=== PATIENT | male | born 1975 | race Caucasian/White ===

== ENCOUNTER 2020-04-21 15:52 | Inpatient (IN) ==
[2020-04-21] MEDS ORDERED: SODIUM CHLORIDE 0.9% 1,000 ML IV STA (16:59)
[2020-04-21] MEDS ORDERED: LEVOFLOXACIN INJ 500 MG in PREMIX 1 EACH IV STA (17:01)
[2020-04-21] MEDS ORDERED: LACTATED RINGERS 1,000 ML IV ONE (17:01)
[2020-04-21] MEDS ORDERED: LEVOFLOXACIN INJ 100 ML IV ONE (17:01)
[2020-04-21 17:10] LABS: Basophils % 0.2 % (0.0-0.8); Eosinophils % 0.2 % (0.00-10.9); Hematocrit 40.7 VOL% (42.0-52.0); Hemoglobin 13.9 GM/DL (14.0-18.0); Immature Granulocytes % 0.5 %; Immature Granulocytes Absolute 0.09 #; Lymphocytes # 3.5 10*3/uL (1.4-4.0); Lymphocytes % 19.6 % (21.2-54.2); Mean Corpuscular HGB Conc 34.2 GM/DL (32-36); Mean Corpuscular Volume 87.5 FL (87-102); Mean Platelet Volume 12.1 FL (9.6-12.0); Monocytes % 9.7 % (1.7-12.7); Neutrophils % 69.8 % (38.7-73.9); Platelet Count 344 T/CUMM (130-400); Red Blood Count 4.65 MC/CUMM (3.8-5.5); Red Cell Distribution Width 15.9 % (9.3-17.3); White Blood Count 17.9 T/CUMM (4-12)
[2020-04-21 17:22] LABS: INR 1.2; Partial Thromboplastin Time 35.9 SECS (23.9-33.8)
[2020-04-21] MEDS ORDERED: DEXAMETHASONE 4 MG/1 ML VIAL IV STA (17:34)
[2020-04-21] MEDS ORDERED: HEPARIN 5,000 UNIT/1 ML VIAL IV ONE (17:34)
[2020-04-21 18:04] LABS: Albumin 3.4 G/DL (3.4-5.0); Bilirubin,Total 0.4 MG/DL (0.2-1.0); Calcium 11.1 MG/DL (8.5-10.1); Osmolality,Calculated 354.5 MOS/KG (273-304); Total Protein 8.7 G/DL (6.4-8.3)
[2020-04-21] MEDS: HEPARIN DRIP 25,000 UNITS/500 ML PREMIX IV SCH (18:27)
[2020-04-21 18:40] LABS: ABG Base Excess -19.7 MMOL/L (-2.5-2.5); ABG HCO3 10.2 MMOL/L (20-26); ABG Oxygen Saturation 87.5 % (95-100); ABG PCO2 22.2 MM HG (35-48); ABG TCO2 7.4 MMOL/L (23-27)
[2020-04-21 18:42] LABS: ABG PH 7.167 (7.35-7.45)
[2020-04-21] MEDS ORDERED: SODIUM BICARB INJ 150 MEQ in DEXTROSE 5% 850 ML IV SCH (19:30)
[2020-04-21] MEDS ORDERED: ALBUTEROL 2.5 MG/3 ML NEB RESP TX PRN (21:22)
[2020-04-21] MEDS ORDERED: ONDANSETRON 4 MG/2 ML VIAL IV PRN (21:22)
[2020-04-21] MEDS ORDERED: PROMETHAZINE 25 MG/1 ML VIAL IM PRN (21:22)
[2020-04-21 22:32] LABS: Apearance,Urine CLOUDY (Clear); Bacteria,Urine Occasional /HPF (Few); Bilirubin,Urine Negative (Negative); Blood, Urine Large mg/dL (Negative); Glucose,Urine (UA) Negative (Negative); Ketones,Urine Negative (Negative); Nitrite,Urine Negative (Negative); Protein,Urine 100 MG/DL; RBC,Urine 1640 /HPF (0-4); Transitional Epi Cells,Urine Moderate /HPF (<1); Urine Color Yellow (Yellow); Urine Specific Gravity 1.019 (1.001-1.035); Urine Urobilinogen < 2.0 EU/DL (0.2-1.0); WBC,Urine 766 /HPF (0-6)
[2020-04-22] MEDS: SODIUM BICARB INJ 150 MEQ in DEXTROSE 5% 850 ML IV SCH ×6 (00:22→21:49)
[2020-04-22] MEDS: PANTOPRAZOLE 40 MG VIAL IV SCH ×2 (00:23→21:48)
[2020-04-22] MEDS ORDERED: SODIUM CHLORIDE 0.9% 1,000 ML IV ONE (00:26)
[2020-04-22 05:06] LABS: ABG Base Excess -13.8 MMOL/L (-2.5-2.5); ABG HCO3 13.9 MMOL/L (20-26); ABG Oxygen Saturation 99.1 % (95-100); ABG PH 7.343 (7.35-7.45); ABG TCO2 9.4 MMOL/L (23-27); Allen Test Positive
[2020-04-22 05:08] LABS: ABG PCO2 19.2 MM HG (35-48)
[2020-04-22 06:06] LABS: Hematocrit 32.9 VOL% (42.0-52.0); Hemoglobin 11.1 GM/DL (14.0-18.0); Immature Granulocytes % 0.4 %; Immature Granulocytes Absolute 0.02 #; Lymphocytes # 0.6 10*3/uL (1.4-4.0); Lymphocytes % 11.7 % (21.2-54.2); Mean Corpuscular HGB Conc 33.7 GM/DL (32-36); Mean Corpuscular Volume 86.6 FL (87-102); Mean Platelet Volume 12.2 FL (9.6-12.0); Monocytes % 0.8 % (1.7-12.7); Neutrophils % 87.1 % (38.7-73.9); Platelet Count 248 T/CUMM (130-400); Red Cell Distribution Width 15.2 % (9.3-17.3)
[2020-04-22 07:08] LABS: Albumin 2.7 G/DL (3.4-5.0); Bilirubin,Total 0.7 MG/DL (0.2-1.0); Calcium 9.8 MG/DL (8.5-10.1); Osmolality,Calculated 359.7 MOS/KG (273-304); Total Protein 7.3 G/DL (6.4-8.3)
[2020-04-22] MEDS: HEPARIN DRIP 25,000 UNITS/500 ML PREMIX IV SCH ×2 (12:37→21:48)
[2020-04-22] MEDS: PROMETHAZINE 25 MG TABLET PO PRN (15:10)
[2020-04-23] MEDS: SODIUM BICARB INJ 150 MEQ in DEXTROSE 5% 850 ML IV SCH ×3 (04:18→19:31)
[2020-04-23 05:25] LABS: Basophils % 0.1 % (0.0-0.8); Hemoglobin 10.3 GM/DL (14.0-18.0); Immature Granulocytes % 0.6 %; Immature Granulocytes Absolute 0.07 #; Lymphocytes # 1.5 10*3/uL (1.4-4.0); Lymphocytes % 13.4 % (21.2-54.2); Mean Corpuscular HGB Conc 34.3 GM/DL (32-36); Mean Corpuscular Volume 85.2 FL (87-102); Mean Platelet Volume 12.3 FL (9.6-12.0); Monocytes % 12.8 % (1.7-12.7); Neutrophils % 73.1 % (38.7-73.9); Platelet Count 240 T/CUMM (130-400); Red Blood Count 3.52 MC/CUMM (3.8-5.5); Red Cell Distribution Width 14.7 % (9.3-17.3); White Blood Count 11.2 T/CUMM (4-12)
[2020-04-23 05:41] LABS: Calcium 8.9 MG/DL (8.5-10.1); Osmolality,Calculated 358.7 MOS/KG (273-304)
[2020-04-23] MEDS: HEPARIN DRIP 25,000 UNITS/500 ML PREMIX IV SCH (08:12)
[2020-04-23] MEDS ORDERED: GLUCAGON 1 MG VIAL IM PRN (09:02)
[2020-04-23] MEDS ORDERED: DEXTROSE 10% 250 ML BAG IV PRN (09:02)
[2020-04-23] MEDS ORDERED: POTASSIUM CHLORIDE 20 MEQ TABLET PO ONE (09:12)
[2020-04-23] MEDS ORDERED: MAGNESIUM SULF RIDER 4 GM in PREMIX 1 EACH IV PRN (09:13)
[2020-04-23] MEDS: INSULIN REGULAR 100 UNIT/ML SUBCUT SCH ×2 (13:05→17:58)
[2020-04-23] MEDS: MAGNESIUM SULF RIDER 2 GM in PREMIX 1 EACH IV PRN (17:25)
[2020-04-23] MEDS: PANTOPRAZOLE 40 MG VIAL IV SCH (21:00)
[2020-04-23] MEDS: PROMETHAZINE 25 MG TABLET PO PRN (21:15)
[2020-04-24] MEDS: INSULIN REGULAR 100 UNIT/ML SUBCUT SCH ×5 (01:23→21:55)
[2020-04-24] MEDS: HEPARIN DRIP 25,000 UNITS/500 ML PREMIX IV SCH ×2 (01:31→20:21)
[2020-04-24] MEDS: POTASSIUM CHLORIDE INJ 30 MEQ in DEXTROSE 5% NACL 0.45% 1,000 ML IV SCH ×2 (03:18→12:06)
[2020-04-24 05:54] LABS: Basophils % 0.1 % (0.0-0.8); Hematocrit 29.9 VOL% (42.0-52.0); Hemoglobin 9.8 GM/DL (14.0-18.0); Immature Granulocytes % 0.4 %; Immature Granulocytes Absolute 0.03 #; Lymphocytes # 1.5 10*3/uL (1.4-4.0); Lymphocytes % 18.7 % (21.2-54.2); Mean Corpuscular HGB Conc 32.8 GM/DL (32-36); Mean Corpuscular Volume 90.3 FL (87-102); Mean Platelet Volume 11.9 FL (9.6-12.0); Monocytes % 13.1 % (1.7-12.7); Neutrophils % 67.7 % (38.7-73.9); Platelet Count 201 T/CUMM (130-400); Red Blood Count 3.31 MC/CUMM (3.8-5.5); Red Cell Distribution Width 14.8 % (9.3-17.3); White Blood Count 8.1 T/CUMM (4-12)
[2020-04-24 06:22] LABS: Calcium 8.9 MG/DL (8.5-10.1); Osmolality,Calculated 342.7 MOS/KG (273-304)
[2020-04-24] MEDS: MAGNESIUM SULF RIDER 2 GM in PREMIX 1 EACH IV PRN (06:53)
[2020-04-24] MEDS: PROMETHAZINE 25 MG TABLET PO PRN (08:35)
[2020-04-24] MEDS: DEXTROSE 5% KCL 20 MEQ 20 MEQ/1,000 ML BAG IV SCH ×2 (12:06→20:17)
[2020-04-24] MEDS: PANTOPRAZOLE 40 MG VIAL IV SCH (21:55)
[2020-04-25] MEDS: DEXTROSE 5% KCL 20 MEQ 20 MEQ/1,000 ML BAG IV SCH ×3 (05:42→21:43)
[2020-04-25 07:02] LABS: Calcium 8.7 MG/DL (8.5-10.1); Osmolality,Calculated 305.6 MOS/KG (273-304)
[2020-04-25] MEDS: INSULIN REGULAR 100 UNIT/ML SUBCUT SCH ×4 (08:20→20:08)
[2020-04-25] MEDS ORDERED: MAGNESIUM SULF RIDER 4 GM in PREMIX 1 EACH IV ONE (08:47)
[2020-04-25] MEDS ORDERED: ENOXAPARIN 40 MG/0.4 ML SYRINGE SUBCUT SCH (21:00)
[2020-04-25] MEDS: PANTOPRAZOLE 40 MG VIAL IV SCH (21:43)
[2020-04-26 05:28] LABS: Calcium 9.2 MG/DL (8.5-10.1); Osmolality,Calculated 288.1 MOS/KG (273-304)
[2020-04-26 07:25] VITALS: BP 131/77
[2020-04-26] MEDS: INSULIN REGULAR 100 UNIT/ML SUBCUT SCH (08:11)
[2020-04-26] MEDS: MAGNESIUM SULF RIDER 2 GM in PREMIX 1 EACH IV PRN (08:11)
== END 2020-04-26 11:36 | disposition home or self-care (01) | DRG 682 ==
LOC: N.ED 15:52 → N.EDINP 20:49 → SUATTDRO 20:49 → N.CC 21:20 → N.2E 04-25 11:53
PROVIDERS: ADMIT Internal Medicine; ATTEND Internal Medicine

== ENCOUNTER 2020-09-26 05:56 | Observation (INO) ==
[2020-09-21 11:06] LABS: Basophils % 0.2 % (0.0-0.8); Eosinophils # 0.2 10*3/uL (0.0-0.87); Eosinophils % 1.4 % (0.00-10.9); Hematocrit 38.8 VOL% (42.0-52.0); Hemoglobin 13.2 GM/DL (14.0-18.0); Immature Granulocytes % 0.4 %; Immature Granulocytes Absolute 0.04 #; Lymphocytes # 1.9 10*3/uL (1.4-4.0); Lymphocytes % 17.9 % (21.2-54.2); Mean Corpuscular Volume 89.2 FL (87-102); Mean Platelet Volume 10.7 FL (9.6-12.0); Monocytes % 5.9 % (1.7-12.7); Neutrophils % 74.2 % (38.7-73.9); Platelet Count 265 T/CUMM (130-400); Red Blood Count 4.35 MC/CUMM (3.8-5.5); Red Cell Distribution Width 13.9 % (9.3-17.3); White Blood Count 10.7 T/CUMM (4-12)
[2020-09-21 11:11] LABS: Bilirubin,Urine Negative (Negative); Blood, Urine Moderate mg/dL (Negative); Glucose,Urine (UA) Negative (Negative); Ketones,Urine Negative (Negative); Mucus,Urine Occasional /LPF (Occasional); Nitrite,Urine Negative (Negative); Protein,Urine Negative; RBC,Urine 20 /HPF (0-4); Urine Appearance Slightly Hazy (Clear); Urine Color Yellow (Yellow); Urine Specific Gravity 1.016 (1.001-1.035); Urine Urobilinogen < 2.0 EU/DL (0.2-1.0); WBC,Urine 219 /HPF (0-6)
[2020-09-21 11:24] LABS: Calcium 9.2 MG/DL (8.5-10.1); Osmolality,Calculated 283.3 MOS/KG (273-304)
[2020-09-26] MEDS ORDERED: ALVIMOPAN 12 MG CAPSULE ONE (07:17)
[2020-09-26] MEDS ORDERED: LEVOFLOXACIN INJ 100 ML IV ONE (07:17)
[2020-09-26] MEDS ORDERED: ALVIMOPAN 12 MG CAPSULE PO ONE (07:39)
[2020-09-26] MEDS: LACTATED RINGERS 1,000 ML IV SCH (07:41)
[2020-09-26] MEDS ORDERED: fentaNYL 100 MCG/2 ML VIAL ONE ×3 (11:06→14:11)
[2020-09-26] MEDS ORDERED: MIDAZOLAM 2 MG/2 ML VIAL ONE (11:06)
[2020-09-26] MEDS ORDERED: LIDOCAINE 2% 5 ML VIAL ONE (11:55)
[2020-09-26] MEDS ORDERED: ROCURONIUM 50 MG/5 ML VIAL IV ONE ×3 (11:55→13:34)
[2020-09-26] MEDS ORDERED: propofoL 200 MG/20 ML VIAL IV ONE (11:55)
[2020-09-26] MEDS ORDERED: LACTATED RINGERS 1,000 ML IV ONE (11:55)
[2020-09-26] MEDS ORDERED: PHENYLEPHRINE 1 MG/10 ML SYRINGE IV ONE (12:00)
[2020-09-26] MEDS ORDERED: ONDANSETRON 4 MG/2 ML VIAL ONE ×3 (12:05→16:10)
[2020-09-26] MEDS ORDERED: DEXAMETHASONE 4 MG/1 ML VIAL ONE ×2 (12:05)
[2020-09-26] MEDS ORDERED: SODIUM CHLORIDE 0.9% 100 ML IV ONE (12:28)
[2020-09-26] MEDS ORDERED: PHENYLEPHRINE 10 MG/1 ML VIAL IV ONE (12:29)
[2020-09-26] MEDS ORDERED: ePHEDrine 50 MG/ML VIAL ONE (12:38)
[2020-09-26] MEDS ORDERED: LACTATED RINGERS 2,000 ML IV ONE (13:34)
[2020-09-26] MEDS ORDERED: SEVOFLURANE 1 UNIT/15 MINUTE INH ONE ×2 (13:34→15:43)
[2020-09-26] MEDS ORDERED: ESMOLOL 100 MG/10 ML VIAL IV ONE (14:51)
[2020-09-26] MEDS ORDERED: SUGAMMADEX 200 MG/2 ML VIAL IV ONE (15:24)
[2020-09-26] MEDS ORDERED: HYDROmorphone 2 MG/1 ML VIAL ONE (16:09)
[2020-09-26] MEDS: HYDROmorphone 2 MG/1 ML VIAL IV PRN ×2 (16:11→16:29)
[2020-09-26] MEDS ORDERED: NALOXONE 0.4 MG/ML VIAL IV PRN (16:22)
[2020-09-26] MEDS ORDERED: HYDROmorphone PCA 30 MG/30 ML SYRINGE IV SCH (16:30)
[2020-09-26] MEDS ORDERED: ONDANSETRON 4 MG/2 ML VIAL IV PRN (16:34)
[2020-09-26] MEDS: ALVIMOPAN 12 MG CAPSULE PO SCH (21:58)
[2020-09-26] MEDS: ROSUVASTATIN 10 MG TABLET PO SCH (21:59)
[2020-09-26] MEDS: TAMSULOSIN 0.4 MG CAPSULE PO SCH (21:59)
[2020-09-26] MEDS: allopurinoL 300 MG TABLET PO SCH (21:59)
[2020-09-26] MEDS: amLODIPine 5 MG TABLET PO SCH (21:59)
[2020-09-26] MEDS: OLMESARTAN 20 MG TABLET PO SCH (21:59)
[2020-09-26] MEDS: SODIUM CHLORIDE 0.45% 1,000 ML IV SCH (22:02)
[2020-09-27] MEDS: ACETAMINOPHEN 500 MG TABLET PO PRN ×3 (05:30→20:31)
[2020-09-27 06:48] LABS: Calcium 8.6 MG/DL (8.5-10.1); Osmolality,Calculated 273.8 MOS/KG (273-304)
[2020-09-27 07:39] LABS: Basophils % 0.1 % (0.0-0.8); Hematocrit 33.9 VOL% (42.0-52.0); Hemoglobin 11.6 GM/DL (14.0-18.0); Immature Granulocytes % 0.4 %; Immature Granulocytes Absolute 0.06 #; Lymphocytes # 0.4 10*3/uL (1.4-4.0); Lymphocytes % 2.7 % (21.2-54.2); Mean Corpuscular HGB Conc 34.2 GM/DL (32-36); Neutrophils % 91.8 % (38.7-73.9); Platelet Count 196 T/CUMM (130-400); Red Blood Count 3.81 MC/CUMM (3.8-5.5); Red Cell Distribution Width 14.1 % (9.3-17.3); White Blood Count 13.8 T/CUMM (4-12)
[2020-09-27 08:05] LABS: Band Neutrophils 6 % (0-10); Lymphocytes 2 % (20-55); Platelet Estimate Normal; Segmented Neutrophils 86 % (50-85); Total Cells Counted 100
[2020-09-27 08:06] LABS: Anisocytosis 2+
[2020-09-27] MEDS: ALVIMOPAN 12 MG CAPSULE PO SCH ×2 (08:35→20:32)
[2020-09-27] MEDS: TAMSULOSIN 0.4 MG CAPSULE PO SCH ×2 (08:35→20:31)
[2020-09-27] MEDS: cefTRIAXone 1,000 MG VIAL IV SCH (08:43)
[2020-09-27] MEDS: LACTATED RINGERS 1,000 ML IV SCH (08:48)
[2020-09-27] MEDS: SODIUM CHLORIDE 0.45% 1,000 ML IV SCH ×2 (08:48→21:57)
[2020-09-27] MEDS ORDERED: MEPERIDINE 25 MG/1 ML VIAL IM PRN (11:09)
[2020-09-27] MEDS: HYDROmorphone 2 MG TABLET PO PRN ×2 (15:51→20:31)
[2020-09-27 16:04] LABS: Hematocrit 31.4 VOL% (42.0-52.0); Hemoglobin 10.7 GM/DL (14.0-18.0); Immature Granulocytes % 0.4 %; Immature Granulocytes Absolute 0.04 #; Lymphocytes # 0.4 10*3/uL (1.4-4.0); Lymphocytes % 4.3 % (21.2-54.2); Mean Corpuscular HGB Conc 34.1 GM/DL (32-36); Mean Corpuscular Volume 88.7 FL (87-102); Mean Platelet Volume 9.6 FL (9.6-12.0); Monocytes % 3.2 % (1.7-12.7); Neutrophils % 92.1 % (38.7-73.9); Platelet Count 170 T/CUMM (130-400); Red Blood Count 3.54 MC/CUMM (3.8-5.5); Red Cell Distribution Width 14.3 % (9.3-17.3); White Blood Count 9.7 T/CUMM (4-12)
[2020-09-27 16:30] LABS: Lymphocytes 4 % (20-55); Segmented Neutrophils 94 % (50-85); Total Cells Counted 100
[2020-09-27 16:31] LABS: Anisocytosis 1+; Hypochromasia 1+; Platelet Estimate Adequate
[2020-09-27] MEDS: allopurinoL 300 MG TABLET PO SCH (20:31)
[2020-09-27] MEDS: ROSUVASTATIN 10 MG TABLET PO SCH (20:32)
[2020-09-27] MEDS: OLMESARTAN 20 MG TABLET PO SCH (22:21)
[2020-09-27] MEDS: amLODIPine 5 MG TABLET PO SCH (22:21)
[2020-09-28] MEDS: HYDROmorphone 2 MG TABLET PO PRN ×3 (01:04→09:20)
[2020-09-28] MEDS: ACETAMINOPHEN 500 MG TABLET PO PRN ×3 (04:08→15:51)
[2020-09-28] MEDS: cefTRIAXone 1,000 MG VIAL IV SCH (09:16)
[2020-09-28] MEDS: TAMSULOSIN 0.4 MG CAPSULE PO SCH ×2 (09:16→20:19)
[2020-09-28] MEDS: ALVIMOPAN 12 MG CAPSULE PO SCH (09:16)
[2020-09-28] MEDS ORDERED: oxyCODONE/ACETAMINOPHEN 5-325 MG TABLET PO PRN (09:49)
[2020-09-28] MEDS ORDERED: NICOTINE 21 MG/24 HR PATCH TRANSDERM PRN (19:58)
[2020-09-28] MEDS: OLMESARTAN 20 MG TABLET PO SCH (20:18)
[2020-09-28] MEDS: allopurinoL 300 MG TABLET PO SCH (20:19)
[2020-09-28] MEDS: amLODIPine 5 MG TABLET PO SCH (20:19)
[2020-09-28] MEDS: ROSUVASTATIN 10 MG TABLET PO SCH (20:19)
[2020-09-28] MEDS: oxyCODONE/ACETAMINOPHEN 5-325 MG TABLET PO PRN (20:20)
[2020-09-29] MEDS: oxyCODONE/ACETAMINOPHEN 5-325 MG TABLET PO PRN ×2 (06:08→10:53)
[2020-09-29 07:55] VITALS: BP 98/61
[2020-09-29] MEDS: cefTRIAXone 1,000 MG VIAL IV SCH (10:54)
[2020-09-29] MEDS: TAMSULOSIN 0.4 MG CAPSULE PO SCH (10:54)
[2020-10-03] MEDS ORDERED: NON-FORMULARY MEDICATION (Semaglutide [Ozempic] 0.25 mg or 0.5 mg(2 mg/1.5 mL) Pen Injecto SUBCUT SCH (09:00)
== END 2020-09-29 12:35 | disposition home or self-care (01) ==
LOC: N.4E 05:56 → N.OR 05:56 → N.SDSINP 05:58 → N.4E 17:33 → N.TELEN 09-28 16:36
PROVIDERS: ADMIT Urology; ATTEND Urology